=== PATIENT | female | born 1955 | race Caucasian/White ===

== ENCOUNTER → 2019-02-12 | Outpatient (CLI) | payer MEDICARE ==
--- NOTE | 2019-02-12 15:16 | RAD ---
EXAM: Lumbar spine, 3 views. HISTORY: Pain. COMPARISON: None. FINDINGS: 3 views of the lumbar spine are obtained. There is degenerative endplate remodeling with disc space narrowing, osteophytosis and facet arthropathy at L5-S1. There are prominent anterior endplate osteophytes at L1-L2 and right lateral endplate osteophytes at L2-L3. There is no fracture. There is a tiny calcification overlying the left paravertebral stripe at L4, possibly a gonadal vein phlebolith. There is also a punctate calcifications overlying the left upper quadrant which appears separate from the renal shadow. IMPRESSION: 1. Multilevel degenerative change, primarily at L5-S1. 2. No acute osseous finding. Electronically signed by: Jayla Andrews MD (02/12/2019 3:13 PM) [place] [id number]
== END | disposition home or self-care (01) ==
LOC: DXRAD 13:03
PROVIDERS: ATTEND Nurse Practitioner Family
DX: M47.897 Other spondylosis, lumbosacral region (principal); M25.78 Osteophyte, vertebrae; M48.07 Spinal stenosis, lumbosacral region; M12.88 Other specific arthropathies, not elsewhere classified, other specified site
CPT/HCPCS: 72100